=== PATIENT | female | born 2000 | race Caucasian/White ===

== ENCOUNTER 2018-06-16 19:30 | Emergency (ER) | payer OTHER ==
[~2018-06-16] VITALS: Ht 152.4 cm; Wt 55.3 kg
[2018-06-16 19:41] VITALS: BP 135/75
--- NOTE | 2018-06-16 19:45 | NUR ---
Pt taken to bed 11.
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
--- NOTE | 2018-06-16 19:53 | NUR ---
PA TORRES EVALUATING PATIENT
[2018-06-16] MEDS ORDERED: ONDANSETRON 4 MG ODT PO ONE (20:15)
[2018-06-16] MEDS ORDERED: ACETAMINOPHEN 325 MG TAB PO ONE (20:15)
[2018-06-16 20:38] VITALS: BP 119/78
== END 2018-06-16 20:39 | disposition home or self-care (01) ==
LOC: MED 19:30
DX: S09.93XA Unspecified injury of face, initial encounter (principal); R11.0 Nausea; R51 Headache; F10.129 Alcohol abuse with intoxication, unspecified; R53.1 Weakness; W19.XXXA Unspecified fall, initial encounter; Y93.89 Activity, other specified; Y92.89 Other specified places as the place of occurrence of the external cause; Y99.8 Other external cause status
CPT/HCPCS: 99283; Q0162

== ENCOUNTER 2018-12-14 20:07 | Emergency (ER) | payer OTHER ==
[~2018-12-14] VITALS: Ht 152.4 cm; Wt 54.4 kg
[2018-12-14 20:13] VITALS: BP 116/76
--- NOTE | 2018-12-14 20:15 | NUR ---
PT AMBULATORY TO ER LOBBY W/ STEADY GAIT IN STABLE CONDITION.
[2018-12-14] MEDS ORDERED: ACETAMINOPHEN 325 MG TAB PO ONE (20:20)
[2018-12-14] MEDS ORDERED: IBUPROFEN 600 MG TAB PO ONE (20:20)
--- NOTE | 2018-12-14 21:29 | NUR ---
PT AMBULATED TO BED 10.
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
[2018-12-14] MEDS ORDERED: KETOROLAC 30 MG/ML VIAL IVP ONE (22:05)
[2018-12-14] MEDS ORDERED: NACL 0.9% 1,000 ML IV ONE (22:05)
[2018-12-14] MEDS ORDERED: ONDANSETRON 4 MG/2 ML VIAL IVP ONE (22:05)
--- NOTE | 2018-12-14 22:07 | NUR ---
XRAY AT BEDSIDE.
[2018-12-14 22:47] LABS: HEMATOCRIT 31.6 % (36-48); HEMOGLOBIN 10.5 g/dL (12.0-16.0); MEAN CORPUSCULAR HEMOGLOBIN 30 pg (27-31); MEAN CORPUSCULAR HGB CONC 33 g/dL (33-37); MEAN CORPUSCULAR VOLUME 88.9 fL (80-94); PLATELET COUNT (AUTO) 194 K/uL (140-450); RED BLOOD CELL COUNT(AUTO) 3.55 MIL/uL (4.20-5.40); RED CELL DISTRIBUTION WIDTH 14.1 % (11.6-13.7); WHITE BLOOD COUNT (AUTO) 9.7 K/uL (4.5-11.0)
[2018-12-14 22:57] LABS: ANION GAP 14.2 (8-16); CARBON DIOXIDE 23.3 mmol/L (21-32); CREATININE 1.3 mg/dL (0.6-1.3); POTASSIUM 3.5 mmol/L (3.5-5.1)
[2018-12-14 23:02] LABS: LYMPHOCYTES % (MANUAL) 4 % (20-46); MONOCYTES % (MANUAL) 6 % (5-12)
[2018-12-14] MEDS ORDERED: cefTRIAXone 1,000 MG VIAL ONE (23:02)
[2018-12-14 23:03] LABS: ALBUMIN 3.3 g/dL (3.4-5.0); TOTAL BILIRUBIN 0.6 mg/dL (0.0-1.0)
[2018-12-14 23:14] LABS: APPEARANCE,URINE CLOUDY (CLEAR); BILIRUBIN,URINE NEGATIVE (NEGATIVE); BLOOD, URINE 3+ (NEGATIVE); COLOR,URINE YELLOW (YELLOW); LEUKOCYTE ESTERASE ,URINE 2+ (NEGATIVE); NITRITE, URINE POSITIVE (NEGATIVE); UGLUCOSE NEGATIVE (NEGATIVE)
[2018-12-14 23:32] LABS: RBC,URINE TOO NUMEROUS TO COUN /HPF (0-5); WBC,URINE TOO MANY TO COUNT /HPF (0-5)
[2018-12-15 00:15] VITALS: BP 114/74
== END 2018-12-15 00:15 | disposition home or self-care (01) ==
LOC: MED 20:07
DX: N39.0 Urinary tract infection, site not specified (principal); D64.9 Anemia, unspecified; R05 Cough; R51 Headache; H92.09 Otalgia, unspecified ear; R06.00 Dyspnea, unspecified; R61 Generalized hyperhidrosis
CPT/HCPCS: 36415; 71045; 80053; 81001; 81002; 81025; 83605; 85025; 87040; 87086; 87186; 87804; 96365; 96375; 99284; J0696; J1885; J2405; J7030; Q0092